=== PATIENT | male | born 1955 | race Caucasian/White ===

== ENCOUNTER 2020-11-18 13:39 | Emergency (ER) | payer OTHER ==
[~2020-11-18] VITALS: Ht 185.4 cm; Wt 81.9 kg
[2020-11-18] MEDS ORDERED: CYCLOBENZAPRINE 10 MG TABLET. PO ONE (14:15)
[2020-11-18] MEDS ORDERED: KETOROLAC 15 MG/ML VIAL. IM ONE (14:15)
[2020-11-18] MEDS ORDERED: oxyCODONE/APAP 5/325 1 TAB TABLET PO ONE (14:15)
--- NOTE | 2020-11-18 14:36 | PHYS DOC ---
Past History Past Medical History: Anxiety, Depression, High Cholesterol (ECTOR BAUTISTA APRN) Past Surgical History: Other Additional Past Surgical Histo: TESTICULAR SURGERY (ECTOR BAUTISTA APRN) Additional Smoking Information: VAPES Alcohol Use: None (ECTOR BAUTISTA APRN) General Adult EDM: Chief Complaint: BACK PAIN - NO INJURY HPI: HPI: Patient is a 65-year-old male presents with right lower back pain that radiates into his butt and down his thigh. Patient states that he has been diagnosed with sciatic nerve pain. Patient's been seeing his PCP and had an x-ray done on Friday. Patient states that pain started 3 months ago. No injury noted. Patient was also given a steroid in his back last week and prescribed an NSAID which has given him no relief. Patient states that the x-ray did not show any fractures but did show degenerative joint disease. Patient states the only thing that helps is sitting in a bathtub. Patient states that pain has been constant. Patient denies urinary retention or loss of bowel. Patient has histo ry of depression, anxiety, hyperlipidemia. (ECTOR BAUTISTA APRN) Review of Systems: Review of Systems: Constitutional: Denies fever or chills Eyes: Denies change in visual acuity HENT: Denies nasal congestion or sore throat Respiratory: Denies cough or shortness of breath Cardiovascular: Denies chest pain or edema GI: Denies abdominal pain, nausea, vomiting, bloody stools or diarrhea : Denies dysuria Musculoskeletal: Ports lower back pain that radiates down into his right thigh and but Integument: Denies rash Neurologic: Denies headache, focal weakness or sensory changes Endocrine: Denies polyuria or polydipsia Lymphatic: Denies swollen glands Psychiatric: Ports history of depression or anxiety (ECTOR BAUTISTA APRN) Current Medications: Current Meds: Current Medications Medications (Trade) Dose Ordered Sig/Enrico Start Time Stop Time Status Last Admin Dose Admin Cyclobenzaprine HCl (Flexeril) 10 mg 1X ONCE 11/18/20 14:15 11/18/20 14:16 DC Ketorolac Tromethamine (Toradol 15mg Vial) 15 mg 1X ONCE 11/18/20 14:15 11/18/20 14:16 DC Oxycodone/ Acetaminophen (Percocet 5/325) 1 tab 1X ONCE 11/18/20 14:15 11/18/20 14:16 DC (ECTOR BAUTISTA APRN) Allergies: Allergies: Allergies Coded Allergies Type Severity Reaction Last Updated Verified No Known Drug Allergies 11/18/20 No (ECTOR BAUTISTA APRN) Physical Exam: PE: Constitutional: Well developed, well nourished, no acute distress, non-toxic appearance. [] HENT: Normocephalic, atraumatic, bilateral external ears normal, oropharynx moist, no oral exudates, nose normal. [] Eyes: PERRLA, EOMI, conjunctiva normal, no discharge. [] Neck: Normal range of motion, no tenderness, supple, no stridor. [] Cardiovascular:Heart rate regular rhythm, no murmur [] Lungs & Thorax: Bilateral breath sounds clear to auscultation [] Abdomen: Bowel sounds normal, soft, no tenderness, no masses, no pulsatile masses. [] Skin: Warm, dry, no erythema, no rash. [] Back: Lower back tenderness, no CVA tenderness. [] Extremities: Right leg and thigh tenderness, ROM intact, no edema. [] Neurologic: Alert and oriented X 3, normal motor function, normal sensory function, no focal deficits noted. [] Psychologic: Affect normal, judgement normal, mood normal. [] (ECTOR BAUTISTA APRN) Current Patient Data: Vital Signs: Vital Signs Date Time Temp Pulse Resp B/P (MAP) Pulse Ox O2 Delivery O2 Flow Rate FiO2 11/18/20 13:50 97.8 82 20 165/100 (121) 97 Room Air (ECTOR BAUTISTA APRN) EKG: EKG: [] (ECTOR BAUTISTA APRN) Radiology/Procedures: Radiology/Procedures: [] (ECTOR BAUTISTA APRN) Heart Score: C/O Chest Pain: No Risk Factors: Risk Factors: DM, Current or recent (<one month) smoker, HTN, HLP, family history of CAD, obesity. Risk Scores: Score 0 - 3: 2.5% MACE over next 6 weeks - Discharge Home Score 4 - 6: 20.3% MACE over next 6 weeks - Admit for Clinical Observation Score 7 - 10: 72.7% MACE over next 6 weeks - Early Invasive Strategies (ECTOR BAUTISTA APRN) Course & Med Decision Making: Course & Med Decision Making Pertinent Labs and Imaging studies reviewed. (See chart for details) [] Male presents with lower back pain that radiates down into his buttocks and right leg. Patient is being treated by his PCP for sciatic nerve pain. Patient denies injury. Patient states symptoms started 3 months ago. Denies urinary retention or loss of bowel. Patient currently taking NSAIDs with no relief. Patient had an x-ray on Friday which showed no fractures. Patient does have signs of degenerative joint disease. Patient is still able to ambulate and has full range of motion of his right leg. Patient given Flexeril, Percocet, Toradol for discomfort. Will reassess patient's pain. She reports pain has improved. Patient is at home with prescription for Percocet, Flexeril, Medrol Dosepak. Patient can also use ibuprofen at home for discomfort. Patient is instructed to return to emergency room with worsening symptoms or concerns. Follow-up with PCP. Patient is appreciative and okay with discharge plan. (ECTOR BAUTISTA APRN) Lorelei Disclaimer: Lorelei Disclaimer: This electronic medical record was generated, in whole or in part, using a voice recognition dictation system. (ECTOR BAUTISTA APRN) Attending Co-Sign The patient was seen and interviewed as well as examined at the bedside. The chart was reviewed. The case was discussed. Agree with the plan of care. (DUNG ALCALA DO) Departure Departure: Impression: Primary Impression: Sciatic nerve pain Qualified Codes: M54.31 - Sciatica, right side Disposition: HOME / SELF CARE / HOMELESS Condition: STABLE Referrals: INA STRICKLAND MD (PCP) Patient Instructions: Sciatica, [id number] Additional Instructions: You are seen the emergency room for sciatic nerve pain. You were given Toradol, Flexeril, Percocet in the emergency room to treat your pain. Please follow back up with your PCP. Please return emergency room with worsening symptoms or concerns. EMERGENCY DEPARTMENT GENERAL DISCHARGE INSTRUCTIONS Thank you for coming to [facility] (ED) today and trusting us with you care. We trust that you had a positivie experience in our Emergency Department. If you wish to speak to the department management, you may call the director at [phone]. YOUR FOLLOW UP INSTRUCTIONS ARE FOLLOWS: 1. Do you have a private Doctor? If you do not have a private doctor, please ask for a resource list of physicians or clinics that may be able to assist you with follow up care. 2. The Emergency Physician has interpreted your x-rays. The X-Ray specialist will also review them. If there is a change in the findings, you will be notified in 48 hours when at all possible. 3. A lab test or culture has been done, your results will be reviewed and you will be notified if you need a change in treatment. ADDITIONAL INSTRUCTIONS AND INFORMATION: 1. Your care today has been supervised by a physician who is specially trained in emergency care. Many problems require more than one evaluation for a complete diagnosis and treatment. We recommend that you schedule your follow up appointment as recommended to ensure complete treatment of you illness or injury. If you are unable to obtain follow up care and continue to have a problem, or if your condition worsens, we recommend that you return to the ED. 2. We are not able to safely determine your condition over the phone nor are we able to give sound medical advice over the phone. For these safety reasons, if you call for medical advice we will ask you to come to the ED for further evaluation. 3. If you have any questions regarding these discharge instructions please call the ED at [phone]. SAFETY INFORMATION: In the interest of safety, wellness, and injury prevention; we encourage you to wear your sealbelt, if you smoke; quite smoking, and we encourage family to use a protective helmet for bicycling and other sporting events that present an increased risk for head injury. IF YOUR SYMPTOMS WORSEN OR NEW SYMPTOMS DEVELOP, OR YOU HAVE CONCERNS ABOUT YOUR CONDITION; OR IF YOUR CONDITION WORSENS WHILE YOU ARE WAITING FOR YOUR FOLLOW UP APPOINTMENT; EITHER CONTACT YOUR PRIMARY CARE DOCTOR, THE PHYSICIAN WHOSE NAME AND NUMBER YOU WERE GIVEN, OR RETURN TO THE ED IMMEDIATELY. Scripts Methylprednisolone (MEDROL) 4 Mg Tab.ds.pk 1 PKG PO UD for inflammation for 6 Days, #1 PKG 0 Refills Prov: ECTOR BAUTISTA APRN 11/18/20 Oxycodone Hcl/Acetaminophen (PERCOCET 5-325 MG TABLET ) 1 Each Tablet 1 TAB PO PRN Q6HRS PRN for PAIN, #20 TAB Prov: ECTOR BAUTISTA APRN 11/18/20 Cyclobenzaprine Hcl (CYCLOBENZAPRINE HCL) 10 Mg Tablet 1 TAB PO TID for PAIN for 10 Days, #30 TAB Prov: ECTOR BAUTISTA APRN 11/18/20 ECTOR BAUTISTA APRN November 18, 2020 14:36 DUNG ALCALA DO November 19, 2020 06:17
[2020-11-18] MEDS ORDERED: CYCL-331 PO (15:17)
[2020-11-18] MEDS ORDERED: OXYC1TAB15 PO (15:17)
[2020-11-18] MEDS ORDERED: METH4TAB2 PO (15:18)
[2020-11-18 15:23] VITALS: BP 157/103
== END 2020-11-18 15:25 | disposition home or self-care (01) ==
LOC: ER 13:39
DX: M54.41 Lumbago with sciatica, right side (principal); F41.9 Anxiety disorder, unspecified; F32.9 Major depressive disorder, single episode, unspecified; E78.5 Hyperlipidemia, unspecified
CPT/HCPCS: 96372; 99283; J1885